=== PATIENT | male | born 1995 | race Caucasian/White ===

== ENCOUNTER → 2020-01-30 | Outpatient (CLI) | payer OTHER ==
[2020-01-30 10:54] LABS: BASO # 0.1 10*3/uL (0.0-0.1); BASO % 0.6 % (0.0-1.0); EOS # 0.5 10*3/uL (0.0-0.4); EOS % 5.7 % (1.0-4.0); LYMPH # 2.9 10*3/uL (1.3-4.4); LYMPH % 35.1 % (27.0-41.0); MEAN CELL VOLUME 90.4 fl (80.0-94.0); MEAN CORPUSCULAR HGB 30.3 pg (27.0-31.0); MEAN CORPUSCULAR HGB CONC 33.5 g/dl (33.0-37.0); MEAN PLATELET VOLUME 9.8 fl (9.6-12.3); MONO # 0.6 10*3/uL (0.1-1.0); MONO % 6.9 % (3.0-9.0); NEUT # 4.3 10*3/uL (2.3-7.9); NEUT % 51.2 % (47.0-73.0); PLATELET COUNT AUTOMATED 289 10*3/uL (130-400); RED BLOOD COUNT 5.42 10*6/uL (4.50-5.90); RED CELL DISTRI WIDTH 13.6 % (0-14.5); WHITE BLOOD COUNT 8.4 10*3/uL (4.8-10.8)
[2020-01-30 11:22] LABS: ALKALINE PHOSPHATASE 83 U/L (45-117); BUN 20 mg/dl (7-24); CHLORIDE 108 mmol/L (98-107); CHOLESTEROL 155 mg/dL (<200); CREATININE 1.18 mg/dL (0.70-1.30); HDL CHOLESTEROL 57 mg/dl (40-60); LDL CHOLESTEROL 80 mg/dL (9-159); SGOT/AST 30 IU/L (3-35); SGPT/ALT 67 U/L (12-78); SODIUM 138 mmol/L (136-145); TOTAL PROTEIN 7.7 gm/dL (6.4-8.2); TRIGLYCERIDES 88 mg/dl (<150); VLDL CHOLESTEROL 18 mg/dL (6-40)
[2020-02-03 14:12] LABS: TESTOSTERONE FREE, (DIRECT) 13.4 pg/mL (9.3-26.5)
== END | disposition home or self-care (01) ==
LOC: LAB 10:24
PROVIDERS: Nurse Practitioner Family
DX: Z13.220 Encounter for screening for lipoid disorders (principal); M25.562 Pain in left knee; R53.83 Other fatigue; I10 Essential (primary) hypertension

== ENCOUNTER → 2021-06-27 | Outpatient (CLI) | payer BC | END | disposition home or self-care (01) | LOC: COVID19 16:00 | PROVIDERS: ATTEND Internal Medicine | DX: U07.1 COVID-19 (principal) ==